=== PATIENT | female | born 1975 | race Caucasian/White ===

== ENCOUNTER 2021-10-08 01:13 | Emergency (ER) | payer BC, OTHER ==
[~2021-10-08] VITALS: Ht 165 cm; Wt 61.0 kg
[2021-10-08 01:15] VITALS: BP 158/119
--- NOTE | 2021-10-08 01:40 | ED Cardiac General ---
History of Present Illness General Chief Complaint: Cardiac/General Problems Stated Complaint: CHEST PAIN Source: patient Exam Limitations: no limitations History of Present Illness Date Seen by Provider: Oct 08, 2021 Time Seen by Provider: 01:22 Initial Comments 46-year-old female with no significant past medical history coming in due to 2 weeks of constant chest pain. Pain is constant, moderate, sharp, center of her chest, radiates to her left arm. Never had pain like this before. Denies any prior history of DVT or PE. Denies any cardiac history. Denies any weakness, numbness, shortness of breath, cough, fever, abdominal pain, nausea, vomiting, diarrhea, or any other concerns. Does states she drinks alcohol mostly on the weekends and does not drink out the week. Denies any history of withdrawals. Says that she was at a concert and was drinking. Allergies and Home Medications Allergies Coded Allergies: Sulfa (Sulfonamide Antibiotics) (Verified Allergy, Unknown, 10/08/21) Patient Home Medication List Home Medication List Reviewed: Yes Review of Systems Review of Systems Constitutional: No chills, No fever EENTM: No Blurred Vision Respiratory: Denies Cough, Denies Shortness of Air Cardiovascular: Chest Pain Gastrointestinal: Denies Abdominal Pain Genitourinary: Denies Burning Musculoskeletal: no symptoms reported Skin: no symptoms reported Psychiatric/Neurological: No Symptoms Reported Endocrine: No Symptoms Reported Hematologic/Lymphatic: No Symptoms Reported All Other Systems Reviewed Negative Unless Noted: Yes Past Taznazw-Bizubl-Xjtygl Hx Patient Social History Tobacco Use?: Yes Substance use?: No Alcohol Use?: Yes Past Medical History Surgeries: Yes Physical Exam Vital Signs Vital Signs - First Documented 10/08/21 01:15 Temp 36.4 Pulse 95 Resp 17 B/P (MAP) 158/119 (132) Pulse Ox 98 O2 Delivery Room Air Capillary Refill : Height, Weight, BMI Height: '" Weight: lbs. oz. kg; BMI Method: General Appearance: No Apparent Distress, WD/WN HEENT: PERRL/EOMI, Normal ENT Inspection, Pharynx Normal Neck: Full Range of Motion, Normal Inspection, Non Tender, Supple Respiratory: Chest Non Tender, Lungs Clear, Normal Breath Sounds, No Accessory Muscle Use, No Respiratory Distress Cardiovascular: Regular Rate, Rhythm, No Edema, Normal Peripheral Pulses Gastrointestinal: Normal Bowel Sounds, Non Tender, Soft; No Distended, No Guarding Extremity: Normal Capillary Refill, Normal Inspection, Normal Range of Motion, Non Tender, No Calf Tenderness, No Pedal Edema Neurologic/Psychiatric: Alert, Oriented x3, No Motor/Sensory Deficits, Normal Mood/Affect Skin: Normal Color, Warm/Dry Lymphatic: No Adenopathy Progress/Results/Core Measures Results/Orders Lab Results Laboratory Tests Test 10/08/21 01:29 10/08/21 02:10 Range/Units White Blood Count 8.2 4.3-11.0 10^3/uL Red Blood Count 4.54 3.80-5.11 10^6/uL Hemoglobin 14.6 11.5-16.0 g/dL Hematocrit 41 35-52 % Mean Corpuscular Volume 91 80-99 fL Mean Corpuscular Hemoglobin 32 25-34 pg Mean Corpuscular Hemoglobin Concent 36 32-36 g/dL Red Cell Distribution Width 12.1 10.0-14.5 % Platelet Count 264 130-400 10^3/uL Mean Platelet Volume 9.6 9.0-12.2 fL Neutrophils (%) (Auto) 40 L 42-75 % Lymphocytes (%) (Auto) 52 H 12-44 % Monocytes (%) (Auto) 5 0-12 % Eosinophils (%) (Auto) 3 0-10 % Basophils (%) (Auto) 1 0-10 % Neutrophils # (Auto) 3.6 1.8-7.8 X 10^3 Lymphocytes # (Auto) 4.3 H 1.0-4.0 X 10^3 Monocytes # (Auto) 0.4 0.0-1.0 X 10^3 Eosinophils # (Auto) 0.2 0.0-0.3 10^3/uL Basophils # (Auto) 0.1 0.0-0.1 10^3/uL Neutrophils % (Manual) 43 % Lymphocytes % (Manual) 22 % Monocytes % (Manual) 6 % Eosinophils % (Manual) 3 % Atypical Lymphocytes 26 % Platelet Estimate NORMAL Blood Morphology Comment NORMAL Prothrombin Time 11.9 L 12.2-14.7 SEC INR Comment 0.8 0.8-1.4 Activated Partial Thromboplast Time 26 24-35 SEC Sodium Level 141 135-145 MMOL/L Potassium Level 3.9 3.6-5.0 MMOL/L Chloride Level 104 98-107 MMOL/L Carbon Dioxide Level 20 L 21-32 MMOL/L Anion Gap 17 H 5-14 MMOL/L Blood Urea Nitrogen 8 7-18 MG/DL Creatinine 0.71 0.60-1.30 MG/DL Estimat Glomerular Filtration Rate 88 BUN/Creatinine Ratio 11 Glucose Level 116 H 70-105 MG/DL Calcium Level 9.5 8.5-10.1 MG/DL Corrected Calcium 8.5-10.1 MG/DL Magnesium Level 2.3 1.6-2.4 MG/DL Total Bilirubin 0.3 0.1-1.0 MG/DL Aspartate Amino Transf (AST/SGOT) 26 5-34 U/L Alanine Aminotransferase (ALT/SGPT) 18 0-55 U/L Alkaline Phosphatase 76 40-136 U/L Troponin I < 0.30 <0.30 NG/ML Pro-B-Type Natriuretic Peptide 26.1 <75.0 PG/ML Total Protein 8.2 6.4-8.2 GM/DL Albumin 4.8 H 3.2-4.5 GM/DL Urine Opiates Screen NEGATIVE NEGATIVE Urine Oxycodone Screen NEGATIVE NEGATIVE Urine Methadone Screen NEGATIVE NEGATIVE Urine Propoxyphene Screen NEGATIVE NEGATIVE Urine Barbiturates Screen NEGATIVE NEGATIVE Ur Tricyclic Antidepressants Screen NEGATIVE NEGATIVE Urine Phencyclidine Screen NEGATIVE NEGATIVE Urine Amphetamines Screen NEGATIVE NEGATIVE Urine Methamphetamines Screen NEGATIVE NEGATIVE Urine Benzodiazepines Screen POSITIVE H NEGATIVE Urine Cocaine Screen NEGATIVE NEGATIVE Urine Cannabinoids Screen NEGATIVE NEGATIVE My Orders Orders - ALISSA GORE MD Cbc With Automated Diff (10/08/21:30) Magnesium (10/08/21:30) Chest 1 View Ap/Pa Only (10/08/2130) Ekg Tracing (10/08/21) Comprehensive Metabolic Panel (10/08/2130) Protime With Inr (10/08/21:) Partial Thromboplastin Time (10/08/21:30) O2 (10/08/21:30) Monitor-Rhythm Ecg Trace Only (10/08/21) Ed Iv/Invasive Line Start (10/08/21:30) Troponin I Fs (10/08/21:30) Probnp Fs (10/08/21:30) Hydroxyzine Cap/Tab (Vistaril) (11/25/21 01:45) Drug Screen Stat (Urine) (10/08/21 01:40) Manual Differential (10/08/21 01:29) Medications Given in ED Current Medications Medications Dose Ordered Sig/Bhupendra Route Start Time Stop Time Status Last Admin Dose Admin Hydroxyzine Pamoate 25 mg ONCE ONCE PO 10/08/21 01:45 10/08/21 01:46 DC 10/08/21 01:45 25 MG Vital Signs/I&O 10/08/21 10/08/21 01:15 02:10 Temp 36.4 Pulse 95 86 Resp 17 21 B/P (MAP) 158/119 (132) 119/83 Pulse Ox 98 98 O2 Delivery Room Air Room Air Progress Progress Note : Progress Note 46-year-old female with above history coming in due to chest pain. ABCs were intact and vitals are stable on presentation. The patient says she is shaking, and it appears voluntary to me. Voiced about the room and she is unaware of us watching, she is no longer shaking. This did cause some artifact on EKG, but accounting for this there are no significant ischemic changes. She was given hydroxyzine to help relax her. Basic labs significant for negative troponin, normal BNP, normal creatinine, normal white blood count. She does have an anion gap metabolic acidosis which is explained by ETOH ingestion. Chest x-ray ordered and interpreted by me showing no pneumonia, no pneumothorax, normal cardiac silhouette. She is low risk for PE per [place] criteria and is PERC negative. Her heart score is 1 and overall I have a very low suspicion for ACS. Normal and equal distal pulses, normal blood pressure, not tachycardic, and no focal neuro findings, and overall I believe dissection of her aorta would be very unlikely. She does appear to be intoxicated on exam, and did drink alcohol tonight. UDS otherwise negative except for benzos. Overall her is with her and is clinically sober. I believe she is stable for discharge with outpatient followup. Given her smoking history I recommended rapid cardiology follow up which they were agreeable to. She was then sent home with strict return precautions. Initial ECG Impression Date: Oct 08, 2021 Initial ECG Impression Time: 01:18 Initial ECG Rate: 93 Initial ECG Rhythm: Normal Sinus Comment Narrow QRS, normal axis, no significant ST changes, T wave flattening in lead aVL and I, no prior EKG to compare to Diagnostic Imaging Diagonstic Imaging: Xray Plain Films/CT/US/NM/MRI: chest Comments X-ray chest ordered and interpreted by me showing no signs of pneumonia, pneumothorax, pleural effusion, normal cardiac silhouette, but there are some enlarged lung cazares with signs of emphysema Departure Impression Primary Impression: Chest pain Qualified Codes: R07.9 - Chest pain, unspecified Disposition: 01 HOME, SELF-CARE Condition: Stable Departure-Patient Inst. Decision time for Depature: 02:30 Referrals: RAKESH BONE MD FACP FAC [facility] NO,LOCAL PHYSICIAN (PCP) Primary Care Physician Patient Instructions: Chest Pain Add. Discharge Instructions: You are seen in the emergency department for chest pain, left arm pain and numbness, as well as the tremors that you are having. Your labs are reassuring and that it does not appear like you are having a heart attack. Your chest x- ray is clear as well. Please follow-up with your regular doctor within the next couple days especially if you continue to have symptoms. I would like you to follow up with a aircraft structural repair mechanic as soon as possible given your smoking history. They may want to do other testing such as a stress test of your heart. ALISSA GORE MD Oct 08, 2021 01:40
[2021-10-08] MEDS ORDERED: hydrOXYzine (VISTARIL/ATARAX) 25 MG capsule/tablet PO ONE (01:45)
[2021-10-08 01:46] LABS: INR 0.8 (0.8-1.4); PROTHROMBIN TIME PATIENT 11.9 SEC (12.2-14.7)
[2021-10-08 01:57] LABS: BASOPHILS # (AUTO) 0.1 10^3/uL (0.0-0.1); BASOPHILS % (AUTO) 1 % (0-10); EOSINOPHILS # (AUTO) 0.2 10^3/uL (0.0-0.3); EOSINOPHILS % (AUTO) 3 % (0-10); HEMATOCRIT 41 % (35-52); HEMOGLOBIN 14.6 g/dL (11.5-16.0); LYMPHOCYTES # (AUTO) 4.3 X 10^3 (1.0-4.0); LYMPHOCYTES % (AUTO) 52 % (12-44); MEAN CORPUSCULAR HEMOGLOBIN 32 pg (25-34); MEAN CORPUSCULAR HGB CONC 36 g/dL (32-36); MEAN CORPUSCULAR VOLUME 91 fL (80-99); MEAN PLATELET VOLUME 9.6 fL (9.0-12.2); MONOCYTES # (AUTO) 0.4 X 10^3 (0.0-1.0); MONOCYTES % (AUTO) 5 % (0-12); NEUTROPHILS # (AUTO) 3.6 X 10^3 (1.8-7.8); NEUTROPHILS % (AUTO) 40 % (42-75); PLATELET COUNT 264 10^3/uL (130-400); WHITE BLOOD COUNT 8.2 10^3/uL (4.3-11.0)
[2021-10-08 01:58] LABS: EOSINOPHILS % (MANUAL) 3 %; LYMPHOCYTES % (MANUAL) 22 %; MONOCYTES % (MANUAL) 6 %; NEUTROPHILS % (MANUAL) 43 %
[2021-10-08 01:59] LABS: ATYPICAL LYMPHOCYTES 26 %; BUN/CREATININE RATIO 11; CARBON DIOXIDE 20 MMOL/L (21-32); CHLORIDE 104 MMOL/L (98-107); CREATININE SERUM 0.71 MG/DL (0.60-1.30); GFR ESTIMATED 88; GLUCOSE 116 MG/DL (70-105); PLATELET ESTIMATE NORMAL; POTASSIUM 3.9 MMOL/L (3.6-5.0); RBC MORPH NORMAL; SODIUM 141 MMOL/L (135-145)
[2021-10-08 02:00] LABS: ALANINE AMINOTRANSFERASE 18 U/L (0-55); ALBUMIN 4.8 GM/DL (3.2-4.5); ALKALINE PHOSPHATASE 76 U/L (40-136); BILIRUBIN,TOTAL 0.3 MG/DL (0.1-1.0); CALCIUM 9.5 MG/DL (8.5-10.1); MAGNESIUM 2.3 MG/DL (1.6-2.4); TOTAL PROTEIN 8.2 GM/DL (6.4-8.2)
[2021-10-08 02:21] LABS: AMPHETAMINE SCREEN, URINE NEGATIVE (NEGATIVE); BARBITURATE SCREEN URINE NEGATIVE (NEGATIVE); BENZODIAZEPINES SCREEN URINE POSITIVE (NEGATIVE); CANNABINOID SCREEN, URINE NEGATIVE (NEGATIVE); COCAINE SCREEN URINE NEGATIVE (NEGATIVE); METHADONE STAT NEGATIVE (NEGATIVE); METHAMPHETAMINE SCREEN URINE S NEGATIVE (NEGATIVE); OPIATE SCREEN URINE NEGATIVE (NEGATIVE); OXYCODONE STAT NEGATIVE (NEGATIVE); PROPOXYPHENE STAT NEGATIVE (NEGATIVE); TRICYCLIC ANTIDEPRESSANTS SCRE NEGATIVE (NEGATIVE)
--- NOTE | 2021-10-08 04:14 | Diagnostic Imaging Report ---
INDICATION: chest pain. TECHNIQUE: Single view chest 1:43 AM. CORRELATION STUDY: None FINDINGS: The heart size, mediastinal configuration and pulmonary vascularity are within normal limits. The left lower lateral lung is incompletely imaged. The visualized lung cazares are slightly hyperinflated may reflect COPD. Lung cazares otherwise are clear with no consolidating infiltrate. There is no significant effusion or pneumothorax. Nipple piercings are present. IMPRESSION: 1. Incompletely visualized left lower lung. Negative for acute abnormality of the chest. Dictated by: Dictated on workstation # [id number]
== END 2021-10-08 02:29 | disposition home or self-care (01) ==
LOC: ER FS 01:16
DX: R07.9 Chest pain, unspecified (principal); Z72.0 Tobacco use
CPT/HCPCS: 36415; 71045; 80053; 80306; 83735; 83880; 84484; 85007; 85027; 85610; 85730; 93005